=== PATIENT | male | born 1955 | race African-American/Black ===

== ENCOUNTER 2018-02-14 17:06 | Emergency (ER) | payer BC ==
[~2018-02-14] VITALS: Ht 177.8 cm; Wt 112.9 kg
[2018-02-14 17:59] VITALS: BP 161/99
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
== END 2018-02-14 20:54 | disposition home or self-care (01) ==
LOC: ER 17:06
DX: S02.82XA Fracture of other specified skull and facial bones, left side, initial encounter for closed fracture (principal); E78.00 Pure hypercholesterolemia, unspecified; I10 Essential (primary) hypertension; I25.2 Old myocardial infarction; Y04.0XXA Assault by unarmed brawl or fight, initial encounter; Y93.89 Activity, other specified; Y92.89 Other specified places as the place of occurrence of the external cause; Y99.8 Other external cause status
CPT/HCPCS: 70450; 70486; 99284-25